=== PATIENT | female | born 1960 | race Caucasian/White ===

== ENCOUNTER 2022-11-09 23:14 | Observation (INO) | payer OTHER, MEDICARE ==
[2022-11-09] MEDS ORDERED: RX INFO: IV CONTRAST WAS GIVEN 1 EACH MISC MISCELLANE PRN (23:27)
[2022-11-09] MEDS ORDERED: HYDROmorphone 0.5 MG/0.5 ML SYRINGE IVP STA (23:27)
--- NOTE | 2022-11-09 23:33 | ED ---
General Adult HPI - General Chief complaint: Chest Pain Stated complaint: Left Side Pain Time Seen by Provider: 11/09/22 23:16 Source: EMS Mode of arrival: EMS Limitations: no limitations - History of Present Illness Initial comments: Dictation was produced using [employer] dictation software. please excuse any grammatical, word or spelling errors. Chief Complaint: 61-year-old female presents emergency department for acute onset pacemaker/AICD site pain History of Present Illness: 61-year-old female she presents emergency Department AICD/pacemaker site pain. Patient states that starting at 8 PM she noticed acute onset AICD site pain. This device was placed 5 years ago at [place]. She has not really had much issues with it. Patient denies any sensation feeling like it went off. Denies any sensation of jolting or a punch in the chest. Patient states that the pain is severe and radiates down the left upper extremity. Patient complains of severe tenderness to the site and left arm. Patient was told that she has worsening pericardial effusion ongoing for the last several months. Patient has any sugars of breath. The ROS documented in this emergency department record has been reviewed and confirmed by me. Those systems with pertinent positive or negative responses have been documented in the HPI. All other systems are other negative and/or noncontributory. PHYSICAL EXAM: General Impression: Alert and oriented x3, not in acute distress HEENT: Normocephalic atraumatic, extra-ocular movements intact, pupils equal and reactive to light bilaterally, mucous membranes moist. Cardiovascular: Heart regular rate and rhythm Chest: Able to complete full sentences, no retractions, no tachypnea, exquisitely tender to the AICD site over the left chest and left upper extremity. No erythema. No obvious induration Abdomen: abdomen soft, non-tender, non-distended, no organomegaly Musculoskeletal: Pulses present and equal in all extremities, no peripheral edema Motor: no focal deficits noted Neurological: CN II-XII grossly intact, no focal motor or sensory deficits noted Skin: Intact with no visualized rashes Psych: Normal affect and mood ED course: 61-year-old female presents emergency Department with AICD site pain signs upon arrival are within acceptable limits. EKG shows ventricularly paced rhythm without any complications. Patient has exquisite tenderness to the AICD site. Does not appear to be infected as there is no erythema or induration Nursing notes and chart review was performed EKG interpreted by me: Ventricular rate 77, ventricularly paced rhythm,. 147, QRS 126, QTC 441. No [place] prolongation, no QTC prolongation, no ST or T-wave changes noted. Overall, this EKG is unremarkable Was pt. sent in by a medical professional or institution (, LOLITA, ADDRESS CHANGE CLERK, urgent care, hospital, or custodial...) When possible be specific @ -No Did you speak to anyone other than the patient for history (EMS, parent, family, police, friend...)? What history was obtained from this source @ -No Did you review nursing and triage notes (agree or disagree)? Why? @ -I reviewed and agree with nursing and triage notes Were old charts reviewed (outside hosp., previous admission, EMS record, old EKG, old radiological studies, urgent care reports/EKG's, custodial records)? Report findings @ -No old charts were reviewed Differential Diagnosis (chest pain, altered mental status, abdominal pain women, abdominal pain men, vaginal bleeding, musculoskeletal, weakness, fever, dyspnea, syncope, headache, dizziness, GI bleed, back pain, seizure, CVA, palpatations, mental health)? @ -Differential Chest Pain: Stable Angina, Unstable Angina, STEMI, NSTEMI Aortic Dissection, Pneumothorax, Musculoskeletal, Esophageal Spasm GERD, Cholecystitis, Pancreatitis, Zoster, this is not meant to be an all-inclusive list. EKG interpreted by me (3pts min.). @ -see above X-rays interpreted by me (1pt min.). @ -None done CT interpreted by me (1pt min.). @ -No acute processes. There does not appear to be any obvious cause of patient's exquisite pain along her AICD site U/S interpreted by me (1pt. min.). @ -None done What testing was considered but not performed or refused? (CT, X-rays, U/S, labs)? Why? @ -See above What meds were considered but not given or refused? Why? @ -See above Did you discuss the management of the patient with other professionals (professionals i.e. , LOLITA, ADDRESS CHANGE CLERK, lab, RT, psych nurse, social insurance specialist, electrician radio, t eacher, security patrol officer, director case management)? Give summary @ -Spoke with Livia of [facility] Was smoking cessation discussed for >3mins.? @ -No Was critical care preformed (if so, how long)? @ -No Were there social determinants of health that impacted care today? How? (Homelessness, low income, unemployed, alcoholism, drug addiction, transportation, low edu. Level, literacy, decrease access to med. care, skilled nursing, rehab)? @ -No Was there de-escalation of care discussed even if they declined (Discuss DNR or withdrawal of care, Hospice)? DNR status @ -No What co-morbidities impacted this encounter? (DM, HTN, Smoking, COPD, CAD, Cancer, CVA, ARF, Chemo, Hep., AIDS, mental health diagnosis, sleep apnea, morbid obesity)? @ -None Was patient admitted / discharged? Hospital course, mention meds given and route, prescriptions, significant lab abnormalities, going to OR and other perti nent info. @ -Year-old female presents to the emergency department with what she describes as AICD site pain. She has reproducible tenderness when palpating the soft tissue near and around her AICD site. There does not appear to be any obvious abnormalities on physical examination of that area. No concern for infection. Patient is not quite the best historian. There is a delay with pacer/AICD interrogation. Patient be observed to the report is completed. She is agreeab le for admission for pain control and cardiology consultation. Undiagnosed new problem with uncertain prognosis? @ -No Drug Therapy requiring intensive monitoring for toxicity (Heparin, Nitro, Insulin, Cardizem)? @ -No Were any procedures done? @ -No Diagnosis/symptom? Acute, or Chronic, or Acute on Chronic? Uncomplicated (without systemic symptoms) or Complicated (systemic symptoms)? @ -1. Acute AICD site pain Side effects of treatment? @ -No Exacerbation, Progression, or Severe Exacerbation? @ -No Poses a threat to life or bodily function? How? (Chest pain, [place], NH, pneumonia, PE, COPD, DKA, ARF, appy, cholecystitis, CVA, Diverticulitis, Homicidal, Suicidal, threat to staff... and all critical care pts) @ -No - Related Data Allergies Allergy/AdvReac Type Severity Reaction Status Date / Time aripiprazole [From Abilify] Allergy Swelling Verified 11/09/22 23:50 cephalexin Allergy Swelling Verified 11/09/22 23:50 latex Allergy Swelling Verified 11/09/22 23:50 lisinopril Allergy Wheezing Verified 11/09/22 23:50 morphine Allergy Swelling Verified 11/09/22 23:50 omeprazole [From Prilosec] Allergy Rash/Hives Verified 11/09/22 23:50 orange juice Allergy Swelling Verified 11/09/22 23:50 oxytetracycline Allergy Rash/Hives Verified 11/09/22 23:50 [From Terramycin] tetracycline Allergy Rash/Hives Verified 11/09/22 23:50 Review of Systems ROS Statement: Those systems with pertinent positive or pertinent negative responses have been documented in the HPI. ROS Other: All systems not noted in ROS Statement are negative. Past Medical History Past Medical History: Chest Pain / Angina, Heart Failure, CVA/TIA, Diabetes Adela itus, Pneumonia History of Any Multi-Drug Resistant Organisms: None Reported Past Surgical History: Section, Hysterectomy, Joint Replacement, Pacemaker Past Psychological History: No Psychological Hx Reported Smoking Status: Former smoker Past Alcohol Use History: None Reported Past Drug Use History: None Reported General Exam Limitations: no limitations Course Vital Signs 11/09/22 11/10/22 23:18 02:07 Temperature 98.4 F Pulse Rate 80 72 Respiratory 18 16 Rate Blood Pressure 122/65 117/97 O2 Sat by Pulse 98 98 Oximetry Medical Decision Making - Lab Data Result diagrams: 11/09/22 23:35 11/09/22 23:35 Lab Results 11/09/22 11/09/22 11/09/22 Range/Units 23:30 23:35 23:35 WBC 10.0 (3.8-10.6) k/uL RBC 3.94 (3.80-5.40) m/uL Hgb 12.1 (11.4-16.0) gm/dL Hct 36.1 (34.0-46.0) % MCV 91.8 (80.0-100.0) fL MCH 30.6 (25.0-35.0) pg MCHC 33.3 (31.0-37.0) g/dL RDW 13.5 (11.5-15.5) % Plt Count 248 (150-450) k/uL MPV 8.5 Neutrophils % 59 % Lymphocytes % 29 % Monocytes % 6 % Eosinophils % 4 % Basophils % 0 % Neutrophils # 5.9 (1.3-7.7) k/uL Lymphocytes # 2.9 (1.0-4.8) k/uL Monocytes # 0.6 (0-1.0) k/uL Eosinophils # 0.4 (0-0.7) k/uL Basophils # 0.0 (0-0.2) k/uL PT 10.1 (9.0-12.0) sec INR 1.0 (<1.2) APTT 22.0 (22.0-30.0) sec Sodium (137-145) mmol/L Potassium (3.5-5.1) mmol/L Chloride (98-107) mmol/L Carbon Dioxide (22-30) mmol/L Anion Gap mmol/L BUN (7-17) mg/dL Creatinine (0.52-1.04) mg/dL Est GFR (CKD-EPI)AfAm (>60 ml/min/1.73 sqM) Est GFR (CKD-EPI)NonAf (>60 ml/min/1.73 sqM) Glucose (74-99) mg/dL Calcium (8.4-10.2) mg/dL Troponin I (0.000-0.034) ng/mL Blood Type Blood Type Confirm AB Positive Blood Type Recheck Bld Type Recheck Status Antibody Screen Spec Expiration Date 11/09/22 11/09/22 11/09/22 Range/Units 23:35 23:35 23:35 WBC (3.8-10.6) k/uL RBC (3.80-5.40) m/uL Hgb (11.4-16.0) gm/dL Hct (34.0-46.0) % MCV (80.0-100.0) fL MCH (25.0-35.0) pg MCHC (31.0-37.0) g/dL RDW (11.5-15.5) % Plt Count (150-450) k/uL MPV Neutrophils % % Lymphocytes % % Monocytes % % Eosinophils % % Basophils % % Neutrophils # (1.3-7.7) k/uL Lymphocytes # (1.0-4.8) k/uL Monocytes # (0-1.0) k/uL Eosinophils # (0-0.7) k/uL Basophils # (0-0.2) k/uL PT (9.0-12.0) sec INR (<1.2) APTT (22.0-30.0) sec Sodium 138 (137-145) mmol/L Potassium 3.6 (3.5-5.1) mmol/L Chloride 105 (98-107) mmol/L Carbon Dioxide 24 (22-30) mmol/L Anion Gap 9 mmol/L BUN 24 H (7-17) mg/dL Creatinine 1.16 H (0.52-1.04) mg/dL Est GFR (CKD-EPI)AfAm 59 (>60 ml/min/1.73 sqM) Est GFR (CKD-EPI)NonAf 51 (>60 ml/min/1.73 sqM) Glucose 209 H (74-99) mg/dL Calcium 9.3 (8.4-10.2) mg/dL Troponin I <0.012 (0.000-0.034) ng/mL Blood Type AB Positive Blood Type Confirm Blood Type Recheck No Previous Record Bld Type Recheck Status CABO Indicated Antibody Screen NEGATIVE Spec Expiration Date 11/12/20222334 Disposition Clinical Impression: Chest pain Disposition: ADMITTED IP TO THIS [facility] Condition: Fair Referrals: Nonstaff,Physician [Primary Care Provider] - 1-2 days Decision Time: 02:17
[2022-11-09 23:58] LABS: Basophils % (A) 0 %; Eosinophils # (A) 0.4 k/uL (0-0.7); Eosinophils % (A) 4 %; HCT 36.1 % (34.0-46.0); HGB 12.1 gm/dL (11.4-16.0); Lymphocytes # (A) 2.9 k/uL (1.0-4.8); Lymphocytes % (A) 29 %; MCH 30.6 pg (25.0-35.0); MCHC 33.3 g/dL (31.0-37.0); MCV 91.8 fL (80.0-100.0); Mean Platelet Volume 8.5; Monocytes # (A) 0.6 k/uL (0-1.0); Monocytes % (A) 6 %; Neutrophils # (A) 5.9 k/uL (1.3-7.7); Neutrophils % (A) 59 %; Platelet Count 248 k/uL (150-450); RBC 3.94 m/uL (3.80-5.40); RDW 13.5 % (11.5-15.5)
[2022-11-10 00:07] LABS: Prothrombin Time 10.1 sec (9.0-12.0)
[2022-11-10 00:13] LABS: Calcium 9.3 mg/dL (8.4-10.2); Potassium 3.6 mmol/L (3.5-5.1)
--- NOTE | 2022-11-10 00:59 | CT ---
EXAMINATION TYPE: CT chest w con DATE OF EXAM: 11/10/2022 COMPARISON: None HISTORY: PAIN AROUND PACEMAKER CT DLP: 229.3 mGycm Automated exposure control for dose reduction was used. CONTRAST: Performed with IV Contrast, patient injected with 80 mL of Isovue 300. Images obtained from the thoracic inlet to the diaphragm with the IV contrast. There are Three-D post processed images. The lungs are clear of consolidation. No pleural effusion. Heart size is normal. No pericardial effus ion. There is no mediastinal adenopathy. There are no hilar masses. There is normal contrast opacification of the pulmonary arteries. No filling defect. Thoracic aorta is intact. No aneurysm or dissection. T here is left axillary pacemaker noted. The thoracic spine is intact. No compression fracture. There is multilevel mild degenerative hypertro phic spurring in the thoracic spine. Sternum is intact. No evidence of rib fracture. IMPRESSION: Negative CT scan of the chest. No evidence of pulmonary embolism. No pulmonary infiltrates. Left axil abundio pacemaker noted in normal position.
[2022-11-10] MEDS ORDERED: NALOXONE 0.4 MG/ML 1 ML VIAL IV PRN (02:10)
[2022-11-10] MEDS: SODIUM CHLORIDE 0.9% 1,000 ML IV SCH (02:21)
[2022-11-10] MEDS: HYDROmorphone 0.5 MG/0.5 ML SYRINGE IVP PRN ×3 (02:48→20:50)
--- NOTE | 2022-11-10 08:56 | P.CRDCN ---
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 The patient had the AICD placed 5 years ago according to her. No details are available at this point regarding the patient medical history. She sees a rug receiving clerk in [place] on regular basis. For the last few days she has been receiving an AICD shocks. She received a total of 3 shocks. The AICD is in process of being interrogated. The shocks are not associated with any dizziness or lightheadedness or any feeling of heart racing or fluttering but associated with severe discomfort. The discomfort o bviously is above the AICD pocket. Otherwise she stated that she has not been experiencing any increasing in the shortness of breath. She does have shortness of breath with exertion consistent with NYHA class II has not changed according to her. No lower extremities edema. No change in the weight. No dizziness or lightheadedness or any presyncope or syncope. She underwent further workup incl uding computed tomography scan of the chest showed no acute abnormalities including pulmonary embolism and she also underwent CBC and BNP came in to be unremarkable. The first set of troponin came in to be unremarkable. No M.D. proBNP was ordered and no chest x-ray ordered and we are going to obtain both. Also an echocardiogram is in process to be done inside the AICD of in process to be debilitated as well. Examination is remarkable for stable vital signs with regular rhythm and systolic murmur was here in the right upper sternal border as well as apical area with clear breathing sounds bilaterally and no lower extremity edema noted and no abdominal distention noted as well. Assessment Status post defibrillator discharge. Appropriate versus inappropriate discharge to be assessed History of nonischemic cardiomyopathy Chest discomfort secondary to AICD discharge Multiple comorbid conditions Plan AICD interrogation Obtain an echo to establish LV function Follow-up with the serial cardiac enzymes Obtain NT proBNP and the chest x-ray The patient doesn't seems to be in any overt congestive heart failure at this point Follow-up with the patient Past Medical History Past Medical History: Chest Pain / Angina, Heart Failure, CVA/TIA, Diabetes Mellitus, Pneumonia History of Any Multi-Drug Resistant Organisms: None Reported Past Surgical History: Section, Hysterectomy, Joint Replacement, Pacemaker Past Psychological History: No Psychological Hx Reported Smoking Status: Former smoker Past Alcohol Use History: None Reported Past Drug Use History: None Reported Medications and Allergies Allergies Allergy/AdvReac Type Severity Reaction Status Date / Time aripiprazole [From Abilify] Allergy Swelling Verified 11/09/22 23:50 cephalexin Allergy Swelling Verified 11/09/22 23:50 latex Allergy Swelling Verified 11/09/22 23:50 lisinopril Allergy Wheezing Verified 11/09/22 23:50 morphine Allergy Swelling Verified 11/09/22 23:50 omeprazole [From Prilosec] Allergy Rash/Hives Verified 11/09/22 23:50 orange juice Allergy Swelling Verified 11/09/22 23:50 oxytetracycline Allergy Rash/Hives Verified 11/09/22 23:50 [From Terramycin] tetracycline Allergy Rash/Hives Verified 11/09/22 23:50 Physical Exam Vitals: Vital Signs Temp Pulse Pulse Resp BP BP Pulse Ox 11/10/22 07:00 97.7 F 68 16 114/72 100 11/10/22 06:00 98.1 F 60 16 122/80 97 11/10/22 02:07 72 16 117/97 98 11/09/22 23:18 98.4 F 80 18 122/65 98 Intake and Output 11/09/22 11/10/22 11/10/22 22:59 06:59 14:59 Other: Weight 55.338 kg Results 11/09/22 23:35 11/09/22 23:35 Cardiac Enzymes 11/09/22 Range/Units 23:35 Troponin I <0.012 (0.000-0.034) ng/mL Coagulation 11/09/22 Range/Units 23:35 PT 10.1 (9.0-12.0) sec APTT 22.0 (22.0-30.0) sec CBC 11/09/22 Range/Units 23:35 WBC 10.0 (3.8-10.6) k/uL RBC 3.94 (3.80-5.40) m/uL Hgb 12.1 (11.4-16.0) gm/dL Hct 36.1 (34.0-46.0) % Plt Count 248 (150-450) k/uL Comprehensive Metabolic Panel 11/09/22 Range/Units 23:35 Sodium 138 (137-145) mmol/L Potassium 3.6 (3.5-5.1) mmol/L Chloride 105 (98-107) mmol/L Carbon Dioxide 24 (22-30) mmol/L BUN 24 H (7-17) mg/dL Creatinine 1.16 H (0.52-1.04) mg/dL Glucose 209 H (74-99) mg/dL Calcium 9.3 (8.4-10.2) mg/dL Current Medications Generic Name Dose Route Start Last Admin Trade Name Freq PRN Reason Stop Dose Admin Hydromorphone HCl 0.5 mg 11/10/22 02:10 11/10/22 02:48 Hydromorphone 0.5 Mg/0.5 Ml Syringe IVP 0.5 mg Q3HR PRN Administration Moderate Pain (Scale 4 to 6) Sodium Chloride 1,000 mls @ 20 mls/hr 11/10/22 02:15 11/10/22 02:21 Saline 0.9% IV 20 mls/hr .Q24H WON Administration Miscellaneous Information 1 each 11/09/22 23:27 Rx Info: Iv Contrast Was Given 1 Each Misc MISCELLANE 11/11/22 23:27 DAILY PRN Per Protocol Naloxone HCl 0.2 mg 11/10/22 02:10 Naloxone 0.4 Mg/Ml 1 Ml Vial IV Q2M PRN Opioid Reversal Intake and Output 11/09/22 11/10/22 11/10/22 22:59 06:59 14:59 Other: Weight 55.338 kg 11/09/22 23:35 11/09/22 23:35
--- NOTE | 2022-11-10 09:39 | XR ---
EXAMINATION TYPE: XR chest 2V DATE OF EXAM: 11/10/2022 9:06 AM COMPARISON: CT chest 11/10/2022 TECHNIQUE: XR chest 2V Frontal and lateral views of the chest. CLINICAL INDICATION:Female, 61 years old with history of cp; FINDINGS: Lungs/Pleura: There is flattening of the diaphragm with increased lucency of the lungs. No evidence o f pneumothorax, pleural effusion or focal consolidation. Pulmonary vascularity: Unremarkable. Heart/mediastinum: Cardiomediastinal silhouette is unremarkable. Three lead cardiac conduction device overlying the left hemithorax with lead tips projecting over the right ventricle, right atrium and c oronary sinus. Musculoskeletal: No acute osseous pathology. No acute osseous abnormality. IMPRESSION: No acute cardiopulmonary disease/process.
[2022-11-10] MEDS: DIGOXIN 125 MCG TAB PO SCH (13:09)
[2022-11-10] MEDS: buPROPion XL 150 MG TAB.ER.24H PO SCH (13:09)
[2022-11-10] MEDS: carvediloL 6.25 MG TAB PO SCH (17:59)
--- NOTE | 2022-11-10 18:19 | CA ---
Transthoracic Echo Report Name: Son Mahoney Age: 61 Gender: F : 1960 Exam Date: 11/10/2022 12:57 Exam Location: [place] [facility] Ht (in): 61 Wt (lb): 122 Ordering Physician: Manav Hutton MD ([id number]) Attending/Referring Phys: Motor Adjuster Negin Echevarria RDCS Procedure CPT: Indications: CP Cardiac Hx: Technical Quality: Fair Contrast 1: Total Dose (mL): Contrast 2: Total Dose (mL): MEASUREMENTS (Male / Female) Normal Values 2D ECHO LV Diastolic Diameter PLAX 4.3 cm 4.2 - 5.9 / 3.9 - 5.3 cm LV Systolic Diameter PLAX 3.1 cm IVS Diastolic Thickness 1.0 cm 0.6 - 1.0 / 0.6 - 0.9 cm LVPW Diastolic Thickness 1.1 cm 0.6 - 1.0 / 0.6 - 0.9 cm LV Relative Wall Thickness 0.5 RV Internal Dim ED PLAX 2.2 cm LA Systolic Diameter LX 4.0 cm 3.0 - 4.0 / 2.7 - 3.8 cm LA Volume 41.1 cm??? 18 - 58 / 22 - 52 cm??? M-MODE Aortic Root Diameter MM 2.2 cm LA Systolic Diameter MM 3.7 cm LA Ao Ratio MM 1.6 AV Cusp Separation MM 1.5 cm DOPPLER AV Peak Velocity 142.3 cm/s AV Peak Gradient 8.1 mmHg AI Peak Velocity 302.0 cm/s AI Peak Gradient 36.5 mmHg AI Pressure Half Time 619.5 ms LVOT Peak Velocity 100.5 cm/s LVOT Peak Gradient 4.0 mmHg MV Area PHT 3.8 cm??? MR Peak Velocity 526.7 cm/s MR Peak Gradient 111.0 mmHg Mitral E Point Velocity 115.5 cm/s Mitral A Point Velocity 96.7 cm/s Mitral E to A Ratio 1.2 MV Deceleration Time 201.9 ms TR Peak Velocity 239.2 cm/s TR Peak Gradient 22.9 mmHg Right Atrial Pressure 8.0 mmHg Pulmonary Artery Systolic Pressu 30.9 mmHg Right Ventricular Systolic Press 30.9 mmHg FINDINGS Left Ventricle Mildly increased posterior wall thickness. Left ventricular cavity size normal. Left ventricular ejection fraction is estimated at 60 %. Right Ventricle Normal right ventricular size. Normal right ventricular global systolic function. Right ventricular systolic pressure within normal limits. Right Atrium Normal right atrial size. Catheter/pacemaker wire in the right atrial cavity. Left Atrium Normal left atrial size. Mitral Valve Structurally normal mitral valve. Moderate mitral regurgitation. Aortic Valve Trileaflet aortic valve. Tricuspid Valve Structurally normal tricuspid valve. Mild tricuspid regurgitation. Pulmonic Valve Structurally normal pulmonic valve. Trace pulmonic regurgitation. Pericardium Normal pericardium. No pericardial or pleural effusion. Aorta Normal size aortic root and proximal ascending aorta. CONCLUSIONS Normal LV systolic function Moderate mitral regurgitation Previewed by: Dr. Manav Hutton MD (Electronically Signed) Final Date: 10 November 2022 18:18
[2022-11-10] MEDS ORDERED: ESCITALOPRAM 20 MG TAB PO SCH (21:00)
[2022-11-10] MEDS ORDERED: ATORVASTATIN 80 MG TAB PO SCH (21:00)
--- NOTE | 2022-11-10 23:10 | P.HPIM ---
History of Present Illness H&P Date: 11/10/22 Chief Complaint: Chest pain Patient is a 61-year-old female with a known history of nonischemic cardiomyopathy status post ICD placement, CVA/TIA, diabetes type 2, pneumonia a nd prior history of smoking presents to ER due to complaints of AICD firing. Patient states that she had AICD placed about 5 years ago. She noticed pain in the AICD site around 8 PM last night. Patient states that she received a total of 3 shocks. Denies any associated nausea or vomiting. No headache or dizziness or lightheadedness. Denies any heart racing or fast. No complaints of worsening chest pain or shortness of breath. Pain is mainly at the AICD site. No worsening leg swelling recently. Patient states that she was told she had pericardial effusion. Denies any fever or chills. No cough or sputum production. EKG showed electronic ventricular pacer rhythm. CT chest showed negative CT scan of the chest. No evidence of pulm PE. No pulmonary infiltrates. Left axillary pacemaker noted in normal position. Chest x-ray showed no acute cardiopulmonary process. Laboratory showed WBC 10.0 hemoglobin 12.1 and platelets 248 sodium 138 potassium 3.6 chloride 105 bicarb 24 BUN 24 and creatinine 1.16 and blood sugar is 209. Troponin x1 negative. proBNP is 53. Review of Systems Constitutional: Patient denies any fever or chills . no Generalized weakness. Abdomen: Patient denied any nausea or vomiting or abd. pain Cardiovascular: Patient has tenderness over the AICD site. No chest pain. No shortness of breath no palpitations. No leg swelling. Respiratory: patient denied any cough . no sputum production. No shortness of breath Neurologic: Patient denied any numbness or tingling headache. Musculoskeletal: Patient denies any complaints of joint swelling or deformity. Skin: Negative Psychiatric: Negative Endocrine: No heat or cold intolerance. No recent weight gain. Genitourinary: No dysuria or hematuria. All other 14 point ROS negative except the above Past Medical History Past Medical History: Chest Pain / Angina, Heart Failure, CVA/TIA, Diabetes Mellitus, Pneumonia History of Any Multi-Drug Resistant Organisms: None Reported Past Surgical History: Section, Hysterectomy, Joint Replacement, Pacemaker Type of Cardiac Device: Permanent Pacemaker, AICD Device Placement Date:: 5 years ago Past Psychological History: No Psychological Hx Reported Smoking Status: Former smoker Past Alcohol Use History: None Reported Past Drug Use History: None Reported Medications and Allergies Home Medications Medication Instructions Recorded Confirmed Type Aspirin EC [Ecotrin Low Dose] 81 mg PO DAILY 11/10/22 11/10/22 History Atorvastatin [Lipitor] 80 mg PO HS 11/10/22 11/10/22 History Bumetanide [BUMEX] 0.5 mg PO DAILY 11/10/22 11/10/22 History Digoxin [Lanoxin] 125 mcg PO DAILY 11/10/22 11/10/22 History Escitalopram [Lexapro] 20 mg PO HS 11/10/22 11/10/22 History Losartan [Cozaar] 25 mg PO DAILY 11/10/22 11/10/22 History buPROPion XL [Wellbutrin XL] 150 mg PO DAILY 11/10/22 11/10/22 History carvediloL [Coreg] 6.25 mg PO BID 11/10/22 11/10/22 History Allergies Allergy/AdvReac Type Severity Reaction Status Date / Time aripiprazole [From Abilify] Allergy Dyspnea Verified 11/10/22 09:09 cephalexin Allergy Swelling Verified 11/10/22 09:09 all over latex Allergy Anaphylaxis Verified 11/10/22 09:09 lisinopril Allergy Wheezing, Verified 11/10/22 09:09 Shortness of Breath morphine Allergy Swelling Verified 11/10/22 09:09 omeprazole [From Prilosec] Allergy Rash/Hives Verified 11/10/22 09:09 orange juice Allergy Swelling Verified 11/10/22 09:09 oxytetracycline Allergy Rash/Hives Verified 11/10/22 09:09 [From Terramycin] tetracycline Allergy Rash/Hives Verified 11/10/22 09:09 Physical Exam Vitals: Vital Signs Temp Pulse Pulse Resp BP BP Pulse Ox 11/10/22 07:00 97.7 F 68 16 114/72 100 11/10/22 06:00 98.1 F 60 16 122/80 97 11/10/22 02:07 72 16 117/97 98 11/09/22 23:18 98.4 F 80 18 122/65 98 Intake and Output 11/09/22 11/10/22 11/10/22 22:59 06:59 14:59 Intake Total 118 Balance 118 Intake: Oral 118 Other: Weight 55.338 kg PHYSICAL EXAMINATION: Patient is lying in the bed comfortably, no acute distress, awake alert and oriented.. HEENT: Normocephalic. Neck is supple. Pupils reactive. Nostrils clear. Oral cavity is moist. Neck reveals no JVD, carotid bruits, or thyromegaly. CHEST EXAMINATION: Trachea is central. Symmetrical expansion. Lung courtney clear to auscultation and percussion. Mild tenderness over the AICD site. No redness or skin changes noted. CARDIAC: Normal S1, S2 with no gallops. No murmurs ABDOMEN: Soft. Bowel sounds present. Nontender. No organomegaly. No abdominal bruits. Extremities: reveal no edema. No clubbing or cyanosis Neurologically awake, alert, oriented x3 with well-coordinated movements. No focal deficits noted Skin: No rash or skin lesions. Psychiatric: Coperative. Nonsuicidal, Musculoskeletal: No joint swelling or deformity. Normal range of motion. Results CBC & Chem 7: 11/09/22 23:35 11/09/22 23:35 Labs: Abnormal Lab Results - Last 24 Hours (Table) 11/09/22 Range/Units 23:35 BUN 24 H (7-17) mg/dL Creatinine 1.16 H (0.52-1.04) mg/dL Glucose 209 H (74-99) mg/dL Thrombosis Risk Factor Assmnt - DVT/VTE Prophylaxis DVT/VTE Prophylaxis: Pharmacologic Prophylaxis ordered - Choose All That Apply Each Risk Factor Represents 2 Points: Age 61-74 years Thrombosis Risk Factor Assessment Total Risk Factor Score: 2 Thrombosis Risk Factor Assessment Level: Low Risk Assessment and Plan Assessment: Status post AICD discharge x3 episodes and tenderness at the AICD site. Nonischemic cardiomyopathy with ICD placement 5 years ago. Patient follows with his mainframe analyst at [facility]. Chronic CHF systolic function Diabetes type 2 Prior history of smoking History of CVA/TIA DVT prophylaxis with heparin subcu Plan: Patient with continued telemetry monitoring. AICD interrogation was done. Cardiology is on board. Continue with aspirin and statins, Coreg and digoxin. Also on losartan. Continue pain management and follow-up closely. 2D echocardiogram was done. Time with Patient: Greater than 30
[2022-11-11] MEDS: SODIUM CHLORIDE 0.9% 1,000 ML IV SCH (01:39)
[2022-11-11 06:05] VITALS: RESP 16
[2022-11-11] MEDS: carvediloL 6.25 MG TAB PO SCH (06:05)
[2022-11-11] MEDS ORDERED: HEPARIN SODIUM,PORCINE/PF 5,000 UNIT/0.5 ML SYRINGE SQ SCH (09:00)
[2022-11-11] MEDS ORDERED: LOSARTAN 25 MG TAB PO SCH (09:00)
[2022-11-11] MEDS ORDERED: ASPIRIN 81 MG PO SCH (09:00)
[2022-11-11] MEDS: HYDROmorphone 0.5 MG/0.5 ML SYRINGE IVP PRN (09:02)
[2022-11-11] MEDS: DIGOXIN 125 MCG TAB PO SCH (09:02)
[2022-11-11] MEDS: buPROPion XL 150 MG TAB.ER.24H PO SCH (09:02)
--- NOTE | 2022-11-11 10:30 | P.PN ---
Subjective The patient is a 61-year-old female patient who sees a senior data developer at with a past medical history significant for nonischemic cardiomyopathy and status post AICD as well as multiple comorbid conditions presented to the hospital complaining of an AICD shocks. The patient had the AICD placed 5 years ago according to her. No details are available at this point regarding the patient medical history. She sees a senior data developer in [place] on regular basis. For the last few days she has been receiving an AICD shocks. She received a total of 3 shocks. The AICD is in process of being interrogated. The shocks are not associated with any dizziness or lightheadedness or any feeling of heart racing or fluttering but associated with severe discomfort. The discomfort obviously is above the AICD pocket. Otherwise she stated that she has not been experiencing any increasing in the shortness of breath. She does have shortness of breath with exertion consistent with NYHA class II has not changed according to her. No lower extremities edema. No change in the weight. No dizziness or lightheadedness or any presyncope or syncope. She underwent further workup including computed tomography scan of the chest showed no acute abnormalities including pulmonary embolism and she also underwent CBC and BNP came in to be unremarkable. The first set of troponin came in to be unremarkable. No M.D. proBNP was ordered and no chest x-ray ordered and we are going to obtain both. Also an echocardiogram is in process to be done inside the AICD of in process to be debilitated as well. Examination is remarkable for stable vital signs with regular rhythm and systolic murmur was here in the right upper sternal border as well as apical area with clear breathing sounds bilaterally and no lower extremity edema noted and no abdominal distention noted as well. 11/11 Patient seen and examined. Echo shows preserved EF without significant valvular disease. BNP was noted to be normal. AICD interrogation shows no actual discharge and normally functioning defibrillator. Her symptoms are more actual chest pain over the site of her AICD and is positional and reproducible with palpation. PHYSICAL EXAMINATION Vital signs reviewed. CONSTITUTIONAL: No apparent distress. HEENT: Head is normocephalic. Pupils are equal, round. Sclerae anicteric. Mucous membranes of the mouth are moist. No JVD. No carotid bruit. CHEST EXAMINATION: Lungs are clear to auscultation. No chest wall tenderness is noted on palpation or with deep breathing. HEART EXAMINATION: Regular rate and rhythm. S1, S2 heard. No murmurs, gallops or rub. ABDOMEN: Soft, nontender. Positive bowel sounds. EXTREMITIES: 2+ peripheral pulses, no lower extremity edema and no calf tenderness. NEUROLOGIC EXAMINATION: Patient is awake, alert and oriented x3. Assessment Atypical musculoskeletal chest pain, no actual AICD discharge History of nonischemic cardiomyopathy, recovered EF Status post AICD placement Multiple comorbid conditions Plan Continue with current regimen. Should patient's chest pain is musculoskeletal and does not appear to be any complication from her defibrillator. No actual discharge on AICD interrogation. Echo showing preserved EF. Follow-up with her primary senior data developer in 1-2 weeks. Objective - Vital Signs Vital signs: Vital Signs Temp 98.1 F 11/11/22 08:01 Pulse 72 11/11/22 08:01 Resp 16 11/11/22 08:01 BP 108/57 11/11/22 08:01 Pulse Ox 98 11/11/22 08:01 FiO2 Intake & Output 11/10/22 11/11/22 11/11/22 18:59 06:59 18:59 Intake Total 400 500 Balance 400 500 Intake: Intake, IV Titration 160 Amount Sodium Chloride 0.9% 1, 160 000 ml @ 20 mls/hr IV . Q24H [facility] Rx#:[id number] Oral 240 500 Other: Voiding Method Toilet - Labs CBC & Chem 7: 11/09/22 23:35 11/09/22 23:35
[2022-11-11 12:05] LABS: African American GFR (CKD) 62.3 (60.0-200.0); Anion Gap 8.6 mmol/L (10.00-18.00); BUN/Creat Ratio 15.27 Ratio (12.00-20.00); Blood Urea Nitrogen 16.8 mg/dL (9.0-27.0); Calcium 9.1 mg/dL (8.7-10.3); Carbon Dioxide 28.4 mmol/L (20.0-27.5); Non-African American GFR(CKD) 53.8 (60.0-200.0); Potassium 3.9 mmol/L (3.5-5.5)
[2022-11-11] MEDS ORDERED: ACETAMINOPHEN TAB 500 MG TAB PO STA (13:41)
[2022-11-11 14:24] VITALS: BP 111/66; PULSE 68; TEMP 97.8
== END 2022-11-11 14:47 | disposition home or self-care (01) ==
LOC: EC 23:14 → 6NMEDSUR 11-10 02:11
PROVIDERS: ADMIT Hospitalist; ATTEND Hospitalist
DX: R07.89 Other chest pain (principal); I42.8 Other cardiomyopathies; Z95.810 Presence of automatic (implantable) cardiac defibrillator; I31.39 Other pericardial effusion (noninflammatory); I50.22 Chronic systolic (congestive) heart failure; E11.9 Type 2 diabetes mellitus without complications; Z86.73 Personal history of transient ischemic attack (TIA), and cerebral infarction without residual deficits; Z87.01 Personal history of pneumonia (recurrent); Z98.891 History of uterine scar from previous surgery; Z96.60 Presence of unspecified orthopedic joint implant; Z90.710 Acquired absence of both cervix and uterus; Z87.891 Personal history of nicotine dependence; Z79.82 Long term (current) use of aspirin; Z79.899 Other long term (current) drug therapy; Z88.1 Allergy status to other antibiotic agents; Z91.040 Latex allergy status; Z88.5 Allergy status to narcotic agent; Z88.8 Allergy status to other drugs, medicaments and biological substances; Z91.018 Allergy to other foods
CPT/HCPCS: 96376 ×3; 96372; 96374; 99285; 36415; 93005; 93306; 86900; 86901; 83880; 80048 ×2; 84484; 85025; 85610; 85730; 86850; 71046; 71260; G0378 ×3; J1170 ×3; Q9967; J1644